=== PATIENT | male | born 2005 | race Caucasian/White ===

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

== ENCOUNTER 2024-06-30 13:44 | Outpatient (CLI) | payer OTHER, SELFPAY ==
[2024-06-30 14:01] LABS: Basophils # 0.1 K/mm3 (0-0.2); Basophils % 1.3 % (0.1-2.0); Eosinophils # 0.3 K/mm3 (0.0-0.4); Eosinophils % 3.8 % (0.1-12.0); Hematocrit 48.3 % (42.0-52.0); Lymphocytes # 2.2 K/mm3 (0.7-4.5); Lymphocytes % 32.5 % (10-50); Mean Corpuscular HGB Conc 33.1 g/dL (31.8-35.4); Mean Corpuscular Hemoglobin 32.1 pg (27.0-31.2); Mean Corpuscular Volume 97.1 fl (80-94); Mean Platelet Volume 7.6 fl (7.4-10.4); Monocytes # 0.3 K/mm3 (0.1-1.0); Monocytes % 4.9 % (1.7-9.3); Neutrophils # 3.9 K/mm3 (1.8-7.8); Neutrophils % 57.6 % (37.0-80.0); Platelet Count 322 K/mm3 (142-424); Red Blood Count 4.97 M/mm3 (4.60-6.20); Red Cell Distribution Width 13.7 % (11.5-17.5); White Blood Count 6.8 K/mm3 (4.5-13.0)
[2024-06-30 15:18] LABS: Anion Gap 12.1 mEq/L (5-15); Carbon Dioxide 28 mmol/L (22.0-30.0); Chloride 105 mmol/L (98-107); Potassium 4.1 mmoL/L (3.5-5.1); Sodium 141 mmol/L (136-145)
[2024-06-30 15:19] LABS: Alanine Aminotransferase 79 U/L (12-78); Albumin Level 4.7 g/dl (3.5-5.0); Albumin/Globulin Ratio 1.5 (1.1-1.8); Alkaline Phosphatase 96 U/L (38-126); Aspartate Amino Transferase 46 U/L (17-59); Bilirubin,Total 0.9 mg/dl (0.2-1.3); Blood Urea Nitrogen 11 mg/dl (9-20); Estimated Glomerular Filt Rate 125 ml/min (>60); GFR (African American) 151 ML/MIN (>60); Globulin 3.1 g/dL (1.3-3.2); Glucose 111 mg/dl (74-100); Total Protein,Serum 7.8 g/dl (6.3-8.2)
== END 2024-06-30 23:59 | disposition home or self-care (01) ==
LOC: LAB 13:44
PROVIDERS: PCP Internal Medicine Adolescent Medicine; Visit Provider Otolaryngology
DX: Z96.22 Myringotomy tube(s) status (principal)
CPT/HCPCS: 36415; 80053; 85025

== ENCOUNTER 2024-07-06 07:20 | Day surgery (SDC) | payer OTHER, SELFPAY ==
[2024-07-04 11:13] VITALS: BMI 31.1
[2024-07-06] VITALS (10 sets, daily range): BP systolic 112–146; BP diastolic 54–83; PULSE 55–82; RESP 14–18; TEMP 36.3–36.8; O2SAT 92–98
--- NOTE | 2024-07-06 07:45 | SUR.PREOP ---
LR would not scan, Mckinley Castrejon notified, Pharmacy notified
--- NOTE | 2024-07-06 09:28 | P.PNANES_ITS ---
[facility] Disclaimer: The information contained in this section may have been updated after the patient was seen, as this information can be updated by other users. Medical History Retained bilateral myringotomy tubes Impacted cerumen of left ear Otitis externa No significant past medical history Surgical History History of laparoscopic cholecystectomy History of esophagogastroduodenoscopy (EGD) History of myringotomy Hx of tonsillectomy Hx of knee surgery Family History Other Family history of cardiac disorder No significant family history Social History (Updated 07/06/24 @ 07:32 by Marta Viveros RN) Smoking Status: Current some day smoker alcohol intake: current substance use type: denies use current occupational status: employed Travel in the last 8 weeks: None household members: family housing: house [facility] Anesthesia Checklist Patient Identification Patient Identification: Arm Band Structural Data Admitted From: Home Planned Operative Procedure/s: Removal of BMT with Gelfoam Myringoplasty Consent for Planned Operative Procedure(s) Verified: Yes Verified Documents: Surgical Consent and History and Physical NPO Status Verified Time NPO: 00:00 Additional verifications Anesthesia Reactions: No Hx Blood Transfusions: No Blood Transfusion Reaction: No Airway Assessment Mallampati Score:: Class II C-Spine Mobility Assessed: Yes TMJ Mobility Assessed: Yes Dentition: Good Dentition Neurological Assessment Level of Consciousness: Awake, Alert and Appropriate Anesthesia Plan Anesthesia Risk discussed: Yes Anesthesia Plan: Verified ASA Class: II Anesthesia Type: General
--- NOTE | 2024-07-06 10:26 | EXP.OP.NOTE ---
Date of procedure: 07/06/24 Pre-op Diagnosis:: Retained ear tubes, bilateral tympanic membrane perforations Post-op Diagnosis:: Retained ear tubes, bilateral tympanic membrane perforations Procedure performed:: Ear tube removal and bilateral Gelfoam myringoplasties Surgeon:: Santo Hayes MD [employer] SALES AGENT:: Amee García Anesthesia: GETA Estimated blood loss (mL): 0 Operative findings:: Small tympanic membrane perforations bilaterally. Normal middle ear Operative note:: The patient was brought to the operating room and after adequate general anesthesia the ears were draped in the usual sterile fashion and the operating microscope was employed to visualize the tympanic membranes. The retained ear tubes were removed with cup forceps and then the small perforations de-epithelialized with a small straight pick and then perforations were plugged with Gelfoam and then Ciprodex drops applied. This was done bilaterally and the procedure concluded. All counts correct and blood loss was minimal Condition: stable Disposition: PACU Complications:: No complications
--- NOTE | 2024-07-06 10:33 | P.PNANES_ITS ---
[facility] Anesthesia Record Part I Anesthesia Record I Intake, IV Amount: 500 Hydration: Adequate Estimated blood loss (mL): 1 Urine output (mL): 0 Blood Products used (#): none Blood Pressure: 131/59 SaO2: 92 Pulse Rate: 58 Airway Patency: Patent Respiratory Rate: 14 Temperature: 97.4 F Patient is:: Drowsy, Oral/Nasal airway (10.0 oral airway upon arrival to PACU) and Stable Stable to PACU at:: 10:33
--- NOTE | 2024-07-06 15:03 | EXP.ANES.II ---
[facility] Anesthesia Record Part II Anesthesia Record Part II Discharge Time: 10:58 Destination: Surgical Day Care (OP Surgery) PACU nurse assessment reviewed?: Yes Patient Condition:: Good Anesthesia Complications:: None Swallowing reflex intact?: Yes Airway Patency: Patent Cyanosis?: No Blood Pressure: 130/70 SaO2: 97 Respiratory Rate: 18 Pulse Rate: 60 Temperature: 97.4 F Mental Status: Alert & Oriented Pain level:: 0 Nausea and/or vomitting:: None Intake, IV Amount: 500 Hydration: Adequate
== END 2024-07-06 11:29 | disposition home or self-care (01) ==
PROVIDERS: PCP Internal Medicine Adolescent Medicine; Visit Provider Otolaryngology
PROC: (CPT 69610; principal; 2024-07-06 09:00)
DX: H72.93 Unspecified perforation of tympanic membrane, bilateral (principal)
CPT/HCPCS: 69610; J1100; J2250; J2405; J3010; J7120